=== PATIENT | male | born 1965 ===

== ENCOUNTER 2017-01-30 13:01 | Emergency (ER) | payer MEDICAID ==
[~2017-01-30] VITALS: Wt 63.5 kg
[2017-01-30] MEDS ORDERED: LIDOCAINE 1% (MDV) 10 ML INJ INJ STA (13:41)
[2017-01-30] MEDS ORDERED: DIPHTH/TET/ACEL PERTUSS (ADULT) 0.5 ML VIAL IM ONE (14:00)
[2017-01-30] MEDS ORDERED: IBUP-1542 PO (14:33)
--- NOTE | 2017-01-30 14:38 | ERD ---
ER Documentation Chief Complaint Date/Time DATE: 01/30/17 TIME: 14:36 Chief Complaint LEFT HAND LAC HPI This 51-year-old male presents with left hand laceration after cutting with a knife guarding. He denies restricted range of motion or weakness. There is no active bleeding. His tetanus is not up-to-date. ROS All systems reviewed and are negative except as per history of present illness. Medications Home Meds Active Scripts Ibuprofen* (Motrin*) 600 Mg Tab, 600 MG PO Q6, #15 TAB Prov:AARON OTERO MD 01/30/17 PMhx/Soc Medical and Surgical Hx: pt denies Medical Hx, pt denies Surgical Hx Physical Exam Vitals Vital Signs Date Time Temp Pulse Resp B/P Pulse Ox O2 Delivery O2 Flow Rate FiO2 01/30/17 13:03 98.1 85 18 131/83 99 Physical Exam Const: [] Alert, not ill-appearing. Head: Atraumatic Eyes: Normal Conjunctiva ENT: Normal External Ears, Nose and Mouth. Neck: Full range of motion..~ No meningismus. Resp: Clear to auscultation bilaterally Cardio: Regular rate and rhythm, no murmurs Abd: Soft, non tender, non distended. Normal bowel sounds Skin: No petechiae or rashes Back: No midline or flank tenderness Ext: No cyanosis, or edema. There is approximately 2.6 cm laceration across the dorsum of left hand. There is no appreciable tendon deficits, and no active bleeding or erythema. Neur: Awake and alert Psych: Normal Mood and Affect Results 24 hrs Current Medications Medications (Trade) Dose Ordered Sig/Azeem Route PRN Reason Start Time Stop Time Status Last Admin Dose Admin Diphtheria/ Tetanus/Acell Pertussis (Adacel) 0.5 ml ONCE ONCE IM 01/30/17 14:00 01/30/17 14:01 DC 01/30/17 13:55 Lidocaine HCl (Lidocaine 1% (Mdv) 10 ml) 10 ml ONCE STAT INJ 01/30/17 13:41 01/30/17 13:42 DC Procedures/MDM Patient presents with a laceration on the dorsum of his left hand without evidence of tendon laceration, ischemia, history or signs to suggest foreign body. Patient is given a tetanus booster per Seizure note-left hand was irrigated copiously with normal saline. 2 cc of lidocaine was used for local infiltration. 4 4-0 nylon sutures were used to approximate the wound patient tolerated procedure well and the wound dressed. Patient was discharged home instructions for wound check in 2 days and suture removal in 7-10 days.. The patient was stable with no new complaints during the ER course. Clinically, there is no current evidence to suggest meningitis, sepsis, acute abdomen, pneumonia, acute coronary syndrome, pulmonary embolism, or any other emergent condition appearing to require further evaluation or hospitalization. The patient should certainly return for any new or worsening symptoms per the aftercare instructions. They should otherwise follow-up with her primary care doctor for reevaluation this week. Disclaimer: Inadvertent spelling and grammatical errors are likely due to EHR/ dictation software use and do not reflect on the overall quality of patient care. Also, please note that the electronic time recorded on this note does not necessarily reflect the actual time of the patient encounter. Departure Diagnosis: Primary Impression: Laceration Condition: Stable Patient Instructions: Laceration, All Additional Instructions: cheque 2 ha para cheque para infeccion. cheque 7-10 ha para saca los puntos / grapas. AARON OTERO MD Jan 30, 2017 14:37
== END 2017-01-30 16:42 | disposition home or self-care (01) ==
LOC: FTE 13:01
DX: S61.412A Laceration without foreign body of left hand, initial encounter (principal); W26.0XXA Contact with knife, initial encounter; Y92.9 Unspecified place or not applicable; Z23 Encounter for immunization
CPT/HCPCS: 12002; 90471; 90715; Z7502; Z7610